=== PATIENT | male | born 1990 | race Hispanic/Latino ===

== ENCOUNTER 2018-09-24 04:50 | Emergency (ER) | payer SELFPAY ==
[2018-09-24] MEDS ORDERED: IBUPROFEN 200 MG TAB ONE (05:27)
[2018-09-24] MEDS ORDERED: IBUPROFEN 400 MG TABLET ONE (05:27)
== END 2018-09-24 05:41 | disposition home or self-care (01) ==
LOC: EDH 04:50
DX: H66.92 Otitis media, unspecified, left ear (principal); Z72.0 Tobacco use